=== PATIENT | female | born 1990 | race Hispanic/Latino ===

== ENCOUNTER 2024-06-19 03:53 | Emergency (ER) | payer BC ==
[~2024-06-19] VITALS: Ht 157.5 cm; Wt 67.1 kg
[2024-06-19] MEDS ORDERED: MACROBID 100 M100 MG PO (04:15)
[2024-06-19 04:16] VITALS: PULSE 83; RESP 18; TEMP 98.6; O2SAT 98
== END 2024-06-19 04:22 | disposition home or self-care (01) ==
LOC: FSED 03:57
DX: R39.15 Urgency of urination (principal); N39.0 Urinary tract infection, site not specified; R10.9 Unspecified abdominal pain
CPT/HCPCS: 99283

== ENCOUNTER 2024-09-02 23:21 | Emergency (ER) | payer BC ==
[~2024-09-02] VITALS: Ht 157.5 cm; Wt 63.5 kg
[~2024-09-02 23:21] MED LIST: MACROBID 100 M100 MG PO
[2024-09-02 23:50] VITALS: PULSE 71; RESP 18; TEMP 98.5
[2024-09-03] MEDS: FAMOTIDINE 20 MG TAB PO ONE (01:19)
[2024-09-03] MEDS ORDERED: IOPAMIDOL 370 MG/ML 100 ML INFUS..BTL INJ ONE (01:53)
[2024-09-03 02:05] VITALS: BP 130/72; PULSE 70; RESP 18; TEMP 98.5; O2SAT 99
== END 2024-09-03 02:05 | disposition home or self-care (01) ==
LOC: FSED 23:40
DX: R10.13 Epigastric pain (principal); K59.00 Constipation, unspecified
CPT/HCPCS: 74160; 80048; 80076; 81003; 81025; 85025; 99283; Q9967